=== PATIENT | male | born 1945 | race Caucasian/White ===

== ENCOUNTER 2021-02-01 15:29 | Emergency (ER) | payer MEDICARE ==
[~2021-02-01] VITALS: Ht 170.2 cm; Wt 122.5 kg
[2021-02-01 17:00] LABS: HEMATOCRIT 38.8 % (42.0-52.0); HEMOGLOBIN 13.5 gm/dL (14.0-18.0); MCH 31.1 pg (26.0-34.0); MCHC 34.9 g/dL (28.0-37.0); MCV 89.1 fL (80.0-100.0); RBC 4.35 mil/uL (4.50-6.00); RDW 13.6 % (10.5-14.5)
[2021-02-01 17:14] LABS: ANION GAP 5 mmol/L (7-16); BUN 18 mg/dL (7-18); CALCIUM 8.6 mg/dL (8.5-10.1); CHLORIDE 100 mmol/L (98-107); CO2 33 mmol/L (21-32); CREATININE 1.6 mg/dL (0.7-1.3); GLUCOSE 103 mg/dL (74-106); POTASSIUM 3.7 mmol/L (3.5-5.1); SODIUM 138 mmol/L (136-145)
[2021-02-01 17:25] LABS: ALBUMIN 3.2 g/dL (3.4-5.0); LIPASE 249 U/L (73-393); SGOT 35 U/L (15-37); SGPT 24 U/L (16-63); TOTAL BILIRUBIN 0.5 mg/dL (0.2-1.0); TOTAL PROTEIN 6.9 g/dL (6.4-8.2); TROPONIN-I <0.06 ng/mL (<0.06)
[2021-02-01 18:49] LABS: URINE BLOOD NEGATIVE (Negative); URINE CLARITY CLEAR; URINE COLOR YELLOW; URINE GLUCOSE-RANDOM* NEGATIVE (Negative); URINE KETONES 1+ (Negative); URINE LEUKOCYTES-REFLEX NEGATIVE (Negative); URINE NITRITE-REFLEX NEGATIVE (Negative); URINE PROTEIN (DIPSTICK) TRACE (Negative); URINE SPECIFIC GRAVITY 1.025 (1.005-1.035); URINE UROBILINOGEN 0.2 E.U./dl (0.2-1.0)
[2021-02-01 19:27] LABS: ICTOTEST (BILI CONFIRMATORY) Negative (Negative); URINE BILIRUBIN NEGATIVE (Negative)
[2021-02-01 19:42] VITALS: BP 170/69
--- NOTE | 2021-02-02 07:35 | EKG ---
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 : 1945 Requested By: Laura Durand Order Number: [id number] MD: Andres Amezcua Measurements Intervals Amber Rate: 67 P: VT: QRS: 90 QRSD: 92 T: -54 QT: 357 QTc: 377 Interpretive Statements Afib/flut and V-paced complexes No further rhythm analysis attempted due to paced rhythm Borderline right axis deviation Borderline repolarization abnormality No previous ECG available for comparison Electronically Signed On 02-02-2021 7:34:41 CDT by Andres Amezcua [email or web address] <ELECTRONICALLY SIGNED> By: Andres Amezcua MD, [facility] 02/02/21 0734 [id number] 18 Andres Amezcua MD, FAC /EPI
== END 2021-02-01 20:45 | disposition home or self-care (01) ==
LOC: ER 15:29
PROVIDERS: Nurse Practitioner Family
DX: U07.1 COVID-19 (principal); I10 Essential (primary) hypertension; I48.91 Unspecified atrial fibrillation; E78.00 Pure hypercholesterolemia, unspecified; N40.0 Benign prostatic hyperplasia without lower urinary tract symptoms; Z88.8 Allergy status to other drugs, medicaments and biological substances